=== PATIENT | male | born 1990 | race Two or more races ===

== ENCOUNTER 2017-06-09 00:13 | Emergency (ER) | payer OTHER ==
[~2017-06-09] VITALS: Ht 162.6 cm; Wt 63.5 kg
[2017-06-09 00:16] VITALS: BP 142/90
== END 2017-06-09 01:35 | disposition left against medical advice (07) ==
LOC: ER 00:17
DX: F10.10 Alcohol abuse, uncomplicated (principal); Z53.21 Procedure and treatment not carried out due to patient leaving prior to being seen by health care provider